=== PATIENT | male | born 1995 | race Caucasian/White ===

== ENCOUNTER 2019-07-20 12:22 | Emergency (ER) | payer SELFPAY ==
[~2019-07-20] VITALS: Ht 165.1 cm; Wt 61.0 kg
[2019-07-20 12:32] VITALS: BP 131/71
[2019-07-20] MEDS ORDERED: PENICILLIN G BENZATHINE 1,200,000 UNITS/2ML SYR IM ONE (13:00)
[2019-07-20] MEDS ORDERED: ACETAMINOPHEN WITH CODEINE 120-12MG/5ML UDC PO ONE (13:00)
[2019-07-20] MEDS ORDERED: DEXAMETHASONE 10 MG/ML VIAL IM ONE (13:00)
== END 2019-07-20 13:46 | disposition home or self-care (01) ==
LOC: ER 12:22
DX: J02.9 Acute pharyngitis, unspecified (principal)
CPT/HCPCS: 96372; 99283; J0561; J1100; Z7610

== ENCOUNTER 2023-07-10 20:38 | Emergency (ER) | payer MEDICAID ==
[~2023-07-10] VITALS: Ht 167.6 cm; Wt 70.8 kg
[2023-07-10 21:05] VITALS: BP 106/58; PULSE 99; RESP 16; TEMP 98; O2SAT 99
[2023-07-10] MEDS ORDERED: ACETAMINOPHEN WITH CODEINE 300/30MG TABLET PO STA (23:02)
[2023-07-10] MEDS ORDERED: KETOROLAC 60MG/2ML VIAL IM STA (23:02)
[2023-07-10] MEDS ORDERED: BACITRACIN ZINC OINT UDPKT TOP ONE (23:15)
[2023-07-10] MEDS ORDERED: LIDOCAINE HCL/EPINEPHRINE 1%-EPI 1:100,000 20 ML VIAL INFIL ONE (23:15)
[2023-07-11] MEDS ORDERED: HYDR-4001 MT (00:39)
[2023-07-11] MEDS ORDERED: NAPR-681 PO (00:39)
[2023-07-11] MEDS ORDERED: SULF1TAB48 MT (00:39)
[2023-07-11] MEDS ORDERED: CEPH500C2 MT (00:39)
== END 2023-07-11 01:18 | disposition home or self-care (01) ==
LOC: ER 20:38
DX: L02.31 Cutaneous abscess of buttock (principal); F12.10 Cannabis abuse, uncomplicated; Z79.899 Other long term (current) drug therapy
CPT/HCPCS: 10060; 96372; 99283; J1885; J3490; Z7610 ×3

== ENCOUNTER 2023-07-13 14:54 | Emergency (ER) | payer MEDICAID ==
[~2023-07-13] VITALS: Ht 175.3 cm; Wt 68.0 kg
[~2023-07-13 14:54] MED LIST: CEPH500C2 MT; HYDR-4001 MT; NAPR-681 PO; SULF1TAB48 MT
[2023-07-13 15:34] VITALS: BP 110/51; PULSE 101; RESP 20; TEMP 98.7; O2SAT 99
== END 2023-07-13 18:24 | disposition home or self-care (01) ==
LOC: ER 14:54
DX: Z48.00 Encounter for change or removal of nonsurgical wound dressing (principal); F12.10 Cannabis abuse, uncomplicated
CPT/HCPCS: 99281

== ENCOUNTER 2024-12-10 12:16 | Emergency (ER) | payer MEDICAID ==
[~2024-12-10] VITALS: Ht 165.1 cm; Wt 77.0 kg
[2024-12-10 12:26] VITALS: O2SAT 99
[2024-12-10 12:41] VITALS: BP 136/95; PULSE 112; RESP 16; TEMP 36.7; O2SAT 98
[2024-12-10] MEDS ORDERED: GUAI-824 PO (12:54)
== END 2024-12-10 13:08 | disposition home or self-care (01) ==
LOC: ER 12:16
DX: J02.9 Acute pharyngitis, unspecified (principal); Z79.899 Other long term (current) drug therapy; F12.90 Cannabis use, unspecified, uncomplicated; Z91.013 Allergy to seafood
CPT/HCPCS: 99282